=== PATIENT | female | born 1970 | race Caucasian/White ===

== ENCOUNTER 2016-10-19 00:17 | Emergency (ER) | payer MEDICAID ==
[2016-10-19] MEDS ORDERED: TDAP ADULT 0.5 ML INJ (BOOSTRIX) IM ONE (01:06)
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
[2016-10-19 04:36] VITALS: BP 128/73; PULSE 73; RESP 16; TEMP 98.1; O2SAT 97
== END 2016-10-30 13:07 | disposition home or self-care (01) ==
PROC: 0HQ0XZZ Repair Scalp Skin, External Approach (ICD-10-PCS; principal; 2016-10-19)
DX: S01.01XA Laceration without foreign body of scalp, initial encounter (principal); F17.200 Nicotine dependence, unspecified, uncomplicated; Z02.89 Encounter for other administrative examinations; X58.XXXA Exposure to other specified factors, initial encounter; Y92.009 Unspecified place in unspecified non-institutional (private) residence as the place of occurrence of the external cause; Y99.8 Other external cause status; Y93.89 Activity, other specified